=== PATIENT | male | born 1955 | race Asian ===

== ENCOUNTER 2018-07-29 03:41 | Emergency (ER) | payer OTHER ==
[~2018-07-29] VITALS: Ht 157.5 cm; Wt 56.8 kg
[2018-07-29] MEDS ORDERED: ASPI-556 PO (03:53)
[2018-07-29] MEDS ORDERED: ATOR20TA86 PO (03:53)
[2018-07-29] MEDS ORDERED: METF-960 PO (03:53)
[2018-07-29] MEDS ORDERED: HYDR25TA PO (03:53)
[2018-07-29 03:59] LABS: GLUCOSE,POINT OF CARE 179 MG/DL (70-110)
[2018-07-29] MEDS ORDERED: LISINOPRIL 10 MG TABLET PO ONE (04:15)
[2018-07-29] MEDS ORDERED: LORazepam 1 MG TABLET PO ONE (04:15)
[2018-07-29 05:00] VITALS: BP 122/78
== END 2018-07-29 05:24 | disposition home or self-care (01) ==
LOC: EMS 03:46
DX: I10 Essential (primary) hypertension (principal); F41.9 Anxiety disorder, unspecified; E11.9 Type 2 diabetes mellitus without complications; E78.00 Pure hypercholesterolemia, unspecified; Z79.899 Other long term (current) drug therapy; Z86.73 Personal history of transient ischemic attack (TIA), and cerebral infarction without residual deficits; Z79.82 Long term (current) use of aspirin

== ENCOUNTER 2019-12-31 19:22 | Emergency (ER) | payer OTHER ==
[~2019-12-31] VITALS: Ht 160 cm; Wt 59.1 kg
[~2019-12-31 19:22] MED LIST: ASPI-556 PO; ATOR20TA86 PO; HYDR-1475 PO; METF-960 PO
[2019-12-31] MEDS ORDERED: ACETAMINOPHEN 325 MG TABLET PO ONE (19:45)
[2019-12-31 20:30] VITALS: BP 129/72
== END 2019-12-31 20:40 | disposition home or self-care (01) ==
LOC: EMS 19:22
DX: R20.0 Anesthesia of skin (principal); I10 Essential (primary) hypertension; E11.9 Type 2 diabetes mellitus without complications; E78.00 Pure hypercholesterolemia, unspecified; Z86.73 Personal history of transient ischemic attack (TIA), and cerebral infarction without residual deficits; Z79.899 Other long term (current) drug therapy
CPT/HCPCS: 70450

== ENCOUNTER 2021-03-15 15:51 | Emergency (ER) | payer BC ==
[~2021-03-15] VITALS: Ht 160 cm; Wt 56.8 kg
[~2021-03-15 15:51] MED LIST changes: -HYDR-1475 PO; +HYDR25TA2 PO; +METF-1211 PO; -METF-960 PO
[2021-03-15 16:28] VITALS: BP 121/68
[2021-03-15] MEDS ORDERED: ASPI-1444 PO (17:27)
== END 2021-03-15 18:12 | disposition left against medical advice (07) ==
LOC: EMS 15:57
DX: M54.9 Dorsalgia, unspecified (principal); Z53.21 Procedure and treatment not carried out due to patient leaving prior to being seen by health care provider

== ENCOUNTER 2024-08-15 05:11 | Emergency (ER) | payer BC, MEDICARE, OTHER ==
[~2024-08-15] VITALS: Ht 160 cm; Wt 54.5 kg
[~2024-08-15 05:11] MED LIST changes: +ASPI-1444 PO; -ASPI-556 PO; +ATOR20TA PO; -ATOR20TA86 PO; +CLOP75TA83 PO; -HYDR25TA2 PO; +LOSA-381 PO
[2024-08-15 05:54] LABS: BASOPHILS % (AUTO) 0.5 % (0.0-2.0); EOSINOPHILS % (AUTO) 3.1 % (1.0-6.0); HEMATOCRIT 40.5 % (41-53); HEMOGLOBIN 13.5 g/dL (13.5-17.5); LYMPHOCYTES % (AUTO) 39.1 % (22.0-44.0); MEAN CORPUSCULAR HEMOGLOBIN 30.5 pg (26.0-34.0); MEAN CORPUSCULAR HGB CONC 33.3 G/dL (31.0-37.0); MEAN CORPUSCULAR VOLUME 92 fL (80-100); MONOCYTES # (AUTO) 0.4 K/uL (0.1-1.0); MONOCYTES % (AUTO) 7.8 % (2.0-9.0); NEUTROPHILS # (AUTO) 2.5 K/uL (1.8-7.7); NEUTROPHILS % (AUTO) 49.5 % (40.0-70.0); PLATELET COUNT (AUTO) 212 K/uL (150-450); RED BLOOD CELL COUNT(AUTO) 4.42 MIL/uL (4.50-5.90); RED CELL DISTRIBUTION WIDTH 12.7 % (11.5-14.5)
[2024-08-15 06:02] LABS: ANION GAP 2 mmol/L (8-16); CALCIUM, TOTAL 8.4 mg/dL (8.8-10.5); CARBON DIOXIDE 32 mmol/L (22-29); CHLORIDE 105 mmol/L (98-107); CREATININE 0.92 mg/dL (0.60-1.30); GLOMERULAR FILTR. RATE CALC > 60 mL/min (>60); GLUCOSE,RANDOM 161 mg/dL (70-110); POTASSIUM 4.1 mmol/L (3.5-5.1); SODIUM SERUM 139 mmol/L (136-145); UREA NITROGEN, BLOOD 17 mg/dL (7-18)
[2024-08-15 06:07] LABS: CREATINE KINASE, TOTAL ONLY 139 U/L (39-308)
[2024-08-15 06:12] LABS: TROPONIN I-HIGH SENSITIVITY 8 ng/L (<76)
[2024-08-15 06:16] LABS: B-TYPE NATRIURETIC PEPTIDE 31 pg/mL (0-100)
[2024-08-15] MEDS: ACETAMINOPHEN 325 MG TABLET PO ONE (06:29)
[2024-08-15 07:05] LABS: APPEARANCE,URINE CLEAR (CLEAR); BILIRUBIN,URINE NEGATIVE (NEGATIVE); COLOR,URINE LIGHT YELLOW (YELLOW); GLUCOSE, URINE (UA) NEGATIVE (NEGATIVE); KETONES,URINE NEGATIVE (NEGATIVE); LEUKOCYTE ESTERASE ,URINE NEGATIVE (NEGATIVE); NITRATE,URINE NEGATIVE (NEGATIVE); OCCULT BLOOD,URINE NEGATIVE (NEGATIVE); PH,URINE 6.5 (5.0-8.0); PROTEIN,URINE NEGATIVE (NEGATIVE); SPECIFIC GRAVITIY, URINE 1.014 (1.003-1.030); UROBILINOGEN,URINE <=1.0 mg/dL (<=1.0)
[2024-08-15 08:21] LABS: TROPONIN I-HIGH SENSITIVITY 8 ng/L (<76)
[2024-08-15 08:49] VITALS: TEMP 97.3
[2024-08-15 09:00] VITALS: BP 140/80; PULSE 87; RESP 20; O2SAT 100
== END 2024-08-15 09:34 | disposition home or self-care (01) ==
LOC: EMS 05:12
DX: M79.602 Pain in left arm (principal); F41.9 Anxiety disorder, unspecified; E11.9 Type 2 diabetes mellitus without complications; E78.00 Pure hypercholesterolemia, unspecified; I10 Essential (primary) hypertension; Z86.73 Personal history of transient ischemic attack (TIA), and cerebral infarction without residual deficits; Z79.82 Long term (current) use of aspirin; Z79.899 Other long term (current) drug therapy; Z79.02 Long term (current) use of antithrombotics/antiplatelets
CPT/HCPCS: 71045; 80048; 81003; 82550; 82962; 83880; 84484; 85025; 93005; 99285; 36415-L1; 36415-TC